=== PATIENT | female | born 1950 | race Caucasian/White ===

== ENCOUNTER → 2016-10-15 | Outpatient (REF) | payer MEDICARE ==
[~2016-10-15] MED LIST: ACET65TA OR; CIPR500T4 OR; CITRACAL/VIT D PO; FLAG500T OR; METO10TA2 OR; MULTIVIT PO; WELLBUTRIN PO
== END ==
LOC: M LAB REF 17:42
PROVIDERS: ATTEND Internal Medicine
DX: Z01.89 Encounter for other specified special examinations (principal)

== ENCOUNTER → 2017-01-17 | Outpatient (REF) | payer MEDICARE | LOC: M LAB REF 13:02 | PROVIDERS: ATTEND Internal Medicine | DX: R53.83 Other fatigue (principal); K59.00 Constipation, unspecified; Z79.899 Other long term (current) drug therapy ==

== ENCOUNTER → 2017-10-06 | Outpatient (REF) | payer MEDICARE ==
[2017-10-06 19:23] LABS: C REACTIVE PROTEIN QUANTITATIV < 0.30 MG/DL (0.00-0.30)
== END ==
LOC: M LAB REF 17:55
DX: M06.4 Inflammatory polyarthropathy (principal)
CPT/HCPCS: 86140

== ENCOUNTER → 2018-10-20 | Outpatient (REF) | payer MEDICARE ==
[2018-10-23 00:08] LABS: Lyme Disease IgG/IgM Antibodie <0.91 ISR (0.00-0.90); Lyme Disease IgM Ab Quantitati <0.80 index (0.00-0.79)
== END ==
LOC: M LAB REF 12:31
PROVIDERS: ATTEND Internal Medicine
DX: M25.50 Pain in unspecified joint (principal)

== ENCOUNTER → 2019-01-27 | Outpatient (REF) | payer MEDICARE ==
[2019-01-27 18:53] LABS: PERCENT SATURATION 33.9 % (13.2-45.0)
== END ==
LOC: M LAB REF 18:28
PROVIDERS: ATTEND Nurse Practitioner Family
DX: D64.9 Anemia, unspecified (principal)

== ENCOUNTER → 2019-02-01 | Outpatient (REF) | payer MEDICARE | LOC: M LAB REF 19:05 | PROVIDERS: ATTEND Physician Assistant | DX: J02.9 Acute pharyngitis, unspecified (principal) ==

== ENCOUNTER → 2020-07-17 | Outpatient (REF) | payer MEDICARE | LOC: M LAB REF 11:20 | PROVIDERS: ATTEND Internal Medicine | DX: K21.9 Gastro-esophageal reflux disease without esophagitis (principal); K58.9 Irritable bowel syndrome, unspecified; R10.84 Generalized abdominal pain ==

== ENCOUNTER → 2020-11-14 | Outpatient (REF) | payer MEDICARE ==
[2020-11-15 17:11] LABS: C REACTIVE PROTEIN QUANTITATIV < 0.30 MG/DL (0.00-0.30); TOTAL PROTEIN 7.4 GM/DL (6.4-8.2)
[2020-11-15 17:35] LABS: PTH INTACT 11.9 PG/ML (18.5-88.0)
== END ==
LOC: M LAB REF 16:29
PROVIDERS: ATTEND Internal Medicine
DX: E83.52 Hypercalcemia (principal); M06.4 Inflammatory polyarthropathy

== ENCOUNTER → 2021-02-09 | Outpatient (CLI) | payer MEDICARE ==
--- NOTE | 2021-02-09 14:06 | REP ---
INDICATION: CHRONIC KIDNEY DISEASE CYST OF KIDNEY COMPARISON: None TECHNIQUE: Real time quintanilla scale and color Doppler ultrasound examination using curved array transducer. FINDINGS: The kidneys are atrophic, but normal in reniform shape and demonstrate heterogeneous parenchymal echotexture, echogenic pyramids, small cystic changes, and few scattered nonobstructing calculi suggesting chronic medical renal disease and medullary sponge kidney disease. No hydronephrosis or perinephric fluid collections are identified. Right kidney measures 8.5 x 3.1 x 4.4 cm (RI 0.66). Left kidney measures 6.9 x 4.3 x 3.5 cm (RI 0.59). The bladder is under distended and grossly unremarkable. Incidental complex predominately hypoechoic lesion in the pelvis measures 4.3 x 2.2 x 4.3 cm and may represent degenerating fundal fibroid versus adnexal mass lesion and cannot be further characterized by current ultrasound. IMPRESSION: 1. 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 No hydronephrosis. 2. Complex hypoechoic lesion in the pelvis possibly uterine or adnexal. 3. Consider follow-up pre and postcontrast CT of the abdomen and pelvis for the above mentioned findings. <Electronically signed by Anton Lawrence > 02/09/21 [id number]
== END ==
LOC: M WHC 12:12
PROVIDERS: ATTEND Nurse Practitioner Family
DX: N18.31 Chronic kidney disease, stage 3a (principal); N28.1 Cyst of kidney, acquired; R19.09 Other intra-abdominal and pelvic swelling, mass and lump

== ENCOUNTER → 2021-02-26 | Outpatient (CLI) | payer MEDICARE ==
--- NOTE | 2021-02-26 16:13 | REP ---
INDICATION: COMPLEX HYPO LESION PELVIS. COMPARISON: Multiple the latest 02/03/2018 also without contrast TECHNIQUE: Standard helical technique without contrast FINDINGS: The lung bases are clear and unchanged. Limited evaluation of the solid intra-abdominal organs and gallbladder show no gross abnormalities or significant changes. There is a benign calcification in the liver status quo. Limited evaluation of the pancreas, adrenal glands, and kidneys show no significant changes. There are bilateral nonobstructing nephroliths status quo. There is no significant change in appearance of the abdominal aorta or para-aortic regions. There is no evidence of free fluid or free air. There is no significant change in appearance of the bowel loops or the mesenteries. Multiple noncontrast opacified bowel loops fill the pelvis. There is sigmoid colon diverticulosis status quo. There is no evidence of free fluid or free air. Due to the bowel loops a pelvic mass could easily be obscured. Bone window technique throughout the exam shows no significant change in appearance of the osseous structures. There are advanced spinal degenerative changes. IMPRESSION: The examination is limited without intravenous and oral bowel preparatory contrast administration. There does not appear to be a significant change compared to the prior CT. Due to the pelvic bowel a mass of similar density could easily be obscured. Follow-up with a contrast enhanced examination with both intravenous and oral bowel preparatory contrast is recommended. Since there has been no recent pelvic ultrasound that should also be considered. <Electronically signed by Jose Anand > 02/26/21 [id number]
== END ==
LOC: M PLAIMG 14:12
PROVIDERS: ATTEND Internal Medicine
DX: K76.89 Other specified diseases of liver (principal)

== ENCOUNTER → 2021-03-20 | Outpatient (CLI) | payer MEDICARE ==
--- NOTE | 2021-03-20 14:26 | REP ---
INDICATION: POSSIBLE PELVIC LESIONS PER CT SCAN. COMPARISON: None. TECHNIQUE: Transvesical and transvaginal imaging The urinary bladder was not completely empty for the transvaginal portion of the exam. This causes limitations. Additionally, the technologist has indicated on the technical worksheet that "the examination is limited due to the patient's body habitus, overlying bowel gas, and the patient's inability to fully empty the urinary bladder for the transvaginal exam". FINDINGS: The uterus measures approximately 8.3 x 4.7 x 2.9 cm. The endometrial echo complex is not visualized. There are 2 incidental nabothian cysts. There is no gross free fluid in the cul-de-sac. Neither ovary was visualized transvesical air transvaginally. IMPRESSION: Nondiagnostic exam due to technical parameters as described above. Pre and post gadolinium enhanced pelvic MRI is recommended. <Electronically signed by Jose Anand > 03/20/21 [id number]
== END ==
LOC: M WHC 12:20
PROVIDERS: ATTEND Internal Medicine
DX: N88.8 Other specified noninflammatory disorders of cervix uteri (principal)

== ENCOUNTER → 2021-04-24 | Outpatient (CLI) | payer MEDICARE ==
--- NOTE | 2021-04-24 16:01 | REP ---
INDICATION: PELVIC LESION F/U ABN CT COMPARISON: 03/20/2021 TECHNIQUE: Transabdominal pelvic ultrasound followed by transvaginal examination for better evaluation of the endometrium and adnexa with color Doppler evaluation of the ovaries. FINDINGS: Bladder is unremarkable and measures 10.4 x 5.4 x 9.3 cm. Heterogeneous anteverted uterus measures 7.7 x 2.6 x 4.3 cm with few scattered chronic calcifications. The endometrial complex measures 1.4 mm. No discrete uterine or endometrial abnormalities appreciated. Previous suspicious findings consistent with calcifications likely vascular calcifications within the fundal portion of the uterus. Bilateral ovaries are not identified. No pelvic fluid or adnexal mass lesion. IMPRESSION: Heterogeneous age-related changes to the uterus including parenchymal and vascular calcifications. No obvious discrete significant abnormality. <Electronically signed by Anton Lawrence > 04/24/21 [id number]
== END ==
LOC: M RAD 14:16
PROVIDERS: ATTEND Internal Medicine
DX: R93.89 Abnormal findings on diagnostic imaging of other specified body structures (principal)

== ENCOUNTER → 2021-11-21 | Outpatient (REF) | payer MEDICARE | LOC: M LAB REF 16:15 | PROVIDERS: ATTEND Internal Medicine | DX: M06.4 Inflammatory polyarthropathy (principal) ==

== ENCOUNTER 2022-09-13 17:55 | Emergency (ER) | payer MEDICARE ==
[~2022-09-13] VITALS: Ht 149.9 cm; Wt 39.1 kg
[2022-09-13 17:56] VITALS: BP 129/75
[2022-09-13] MEDS ORDERED: PREPARATION H SUPP (HEMORRHOID) PR STA (20:07)
[2022-09-13] MEDS ORDERED: DOCUSATE SODIUM 100MG CAPSULE PO ONE (20:10)
[2022-09-13] MEDS ORDERED: PREP1SUP PR (20:28)
[2022-09-13] MEDS ORDERED: COLA100C5 PO (20:28)
== END 2022-09-13 20:45 | disposition home or self-care (01) ==
LOC: M ED 17:55
DX: K62.3 Rectal prolapse (principal); K58.9 Irritable bowel syndrome, unspecified; N18.30 Chronic kidney disease, stage 3 unspecified; Z88.5 Allergy status to narcotic agent; Z79.899 Other long term (current) drug therapy

== ENCOUNTER 2022-11-30 17:03 | Emergency (ER) | payer MEDICARE ==
[~2022-11-30] VITALS: Ht 149.9 cm; Wt 38.8 kg
[2022-11-30 17:03] VITALS: BP 150/72; TEMP 98; O2SAT 99
[~2022-11-30 17:03] MED LIST changes: +COLA100C5 PO; +PREP1SUP PR
== END 2022-11-30 20:09 | disposition home or self-care (01) ==
LOC: M ED 17:03
DX: R10.9 Unspecified abdominal pain (principal); K59.00 Constipation, unspecified; K58.9 Irritable bowel syndrome, unspecified; Z88.5 Allergy status to narcotic agent; Z88.1 Allergy status to other antibiotic agents; Z79.899 Other long term (current) drug therapy

== ENCOUNTER → 2023-03-20 | Outpatient (REF) | payer MEDICARE | LOC: M LAB REF 12:03 | PROVIDERS: ATTEND Internal Medicine | DX: M06.4 Inflammatory polyarthropathy (principal) ==

== ENCOUNTER → 2023-09-22 | Outpatient (REF) | payer MEDICARE | LOC: M LAB REF 17:09 | PROVIDERS: ATTEND Internal Medicine | DX: M06.4 Inflammatory polyarthropathy (principal) ==

== ENCOUNTER → 2024-02-17 | Outpatient (REF) | payer MEDICARE | LOC: M LAB REF 12:00 | PROVIDERS: ATTEND Internal Medicine | DX: M06.4 Inflammatory polyarthropathy (principal) ==

== ENCOUNTER → 2024-06-03 | Outpatient (CLI) | payer MEDICARE | LOC: M RAD 16:26 | PROVIDERS: ATTEND Physician Assistant Medical | DX: R05.9 Cough, unspecified (principal) ==

== ENCOUNTER → 2024-12-24 | Outpatient (REF) | payer MEDICARE | LOC: M LAB REF 14:45 | PROVIDERS: ATTEND Internal Medicine | DX: R09.3 Abnormal sputum (principal) ==

== ENCOUNTER → 2024-12-28 | Outpatient (REF) | payer MEDICARE | LOC: M LAB REF 17:37 | PROVIDERS: ATTEND Internal Medicine | DX: M06.9 Rheumatoid arthritis, unspecified (principal) ==